=== PATIENT | female | born 2000 | race Caucasian/White ===

== ENCOUNTER → 2018-11-25 16:04 | Outpatient (CLI) | payer BC | END | disposition home or self-care (01) | LOC: D.MRI 16:00 | PROVIDERS: ATTEND Orthopaedic Surgery | DX: S83.241A Other tear of medial meniscus, current injury, right knee, initial encounter (principal) ==

== ENCOUNTER 2019-12-01 07:26 | Day surgery (SDC) | payer BC ==
[~2019-12-01] VITALS: Ht 170.2 cm; Wt 86.2 kg
--- NOTE | ~2019-12-01 | OP ---
PATIENT NAME: JOSE F CEVALLOS MEDICAL RECORD: [id number] :98 [facility] DATE: SURGEON: JORGE GARCIA MD DATE OF OPERATION: 12/01/2019 PREOPERATIVE DIAGNOSIS: Chronic pharyngitis. POSTOPERATIVE DIAGNOSIS: Chronic pharyngitis. PROCEDURE: Tonsillectomy and adenoidectomy. SURGEON: Jorge Garcia MD ANESTHESIA: General orotracheal. BLOOD LOSS: Less than 5 cc. SPECIMENS: Right and left tonsil. COMPLICATIONS: None. DISPOSITION: Recovery stable. PROCEDURE NOTE: She was brought to operating room and placed in supine position, sedated and intubated by anesthesia. The table was turned 90 degrees. Head drapes were applied. She was positioned for tonsillectomy. Using a headlight, a Mila-Francis mouth gag was carefully inserted and elevated on a towel on the chest. The palate was examined and palpated as normal. A red rubber catheter was placed to the right side of the nose and pharynx was grasped with tonsil clamp to retract the soft palate. Using mirror, the nasopharynx was examined. Suction cautery on a setting of 35 was used to ablate and suction the adenoid pad with no significant bleeding. The red rubber catheter was let down and removed. The right tonsil was grasped at the superior pole with a straight Allis clamp. Spatula tip cautery on a setting of 8 was used to dissect out the tonsil along its capsule, preserving the anterior and posterior tonsillar pillar. The left tonsil was removed in the same fashion. Then, both sides of the nose were irrigated with saline. The pharynx was suctioned. Tonsillar fossae were agitated. Suction cautery on a setting of 18 was used to control minimal oozing. With the field clean and dry, she was awakened, extubated, and transported to recovery in good condition. No complications. TRANSINT:[id number] Voice Confirmation ID: [id number] DOCUMENT ID: [id number] JORGE GARCIA MD CC: [id number] DICTATION DATE: 12/01/19 1131 OUTBOUND SALES AGENT: 12/01/19 2330 [facility] 12/01/19 [facility] [address] [id number]
--- NOTE | ~2019-12-01 | HP ---
PATIENT: JOSE F CEVALLOS MEDICAL RECORD: [id number] ACCOUNT: [id number] LOCATION:[facility] : 98 ADMISSION DATE: 12/01/19 PCP: LENA MCDOWELL MD HISTORY AND PHYSICAL EXAMINATION HISTORY OF PRESENT ILLNESS: Jose F is 19 years old. She has been having significant problems with recurrent pharyngitis and tonsillitis for years. She is being admitted for tonsillectomy and adenoidectomy. PAST MEDICAL HISTORY: Includes reactive airway disease. PAST SURGICAL HISTORY: Includes foot surgery 10 years ago. CURRENT MEDICATIONS: Angelita. ALLERGIES: No known drug allergies. PHYSICAL EXAMINATION: GENERAL: She is healthy-appearing, developmentally normal. FACE: Normal, symmetric, no lesions. EYES: Sclerae and conjunctivae are normal. EARS: Canals and TMs are normal. NOSE: No mass, polyps or drainage. ORAL CAVITY AND OROPHARYNX: A 3+ tonsils, large crypts and tonsilliths. Normal palate. NECK: No masses, no adenopathy. CHEST: Clear. CARDIOVASCULAR: Regular rate and rhythm, no murmur. EXTREMITIES: Normal. IMPRESSION: Chronic tonsillitis and tonsilliths. PLAN: Tonsillectomy and adenoidectomy. TRANSINT:[id number] Voice Confirmation ID: [id number] DOCUMENT ID: [id number] JORGE GUTIERREZ MD CC: [id number] DICTATION DATE: 11/28/19 1131 CNC SERVICE TECHNICIAN: 11/28/19 1401 [facility] [address] [place] [address]
[~2019-12-01 07:26] MED LIST: SYEDA 28 TABLE1 EACH PO; ZOVIRAX800 MG PO
[2019-12-01 07:50] LABS: HEMATOCRIT 39.1 % (36.0-48.0); HEMOGLOBIN 13.3 g/dL (12-16); MCH 29.5 pg (26.0-34.0); MCV 86.7 fL (80.0-100.0); MEAN PLATELET VOLUME 9.7 fL (7.4-10.4); RBC 4.51 10x6/uL (4.00-5.40); RDW 13.8 % (11.5-14.5); WBC 5.9 10x3/uL (4.8-10.8)
[2019-12-01 08:12] LABS: HCG SERUM NEGATIVE (NEGATIVE)
[2019-12-01 08:25] VITALS: BP 117/69; Ht 170.2 cm; Wt 86.2 kg
--- NOTE | 2019-12-01 12:25 | NUR ---
DC INSTRUCTIONS GIVEN TO PT AND PT'S MOTHER. STATE UNDERSTANDING. PT DENIES NEEDS AT THIS TIME. PT RESTING QUIETLY IN BED. 2 SIDE RAILS UP. WILL CONTINUE TO MONITOR. WILL DC WHEN CRITERIA MET.
--- NOTE | 2019-12-01 12:50 | NUR ---
VSS, IV DC'D WITH TIP INTACT. WHEELED OUT TO CAR
== END 2019-12-01 12:55 | disposition home or self-care (01) ==
LOC: D.OPS 07:26 → D.PAN 09:00 → D.OPS 09:00 → D.PAN 09:30 → D.OPS 12:55
PROVIDERS: Anesthesiology; ATTEND Otolaryngology
DX: J31.2 Chronic pharyngitis (principal); J35.01 Chronic tonsillitis